=== PATIENT | female | born 2005 | race Hispanic/Latino ===

== ENCOUNTER 2024-02-21 11:15 | Emergency (ER) | payer SELFPAY ==
[2024-02-21] MEDS ORDERED: Sodium Chloride 0.9% 1,000 ML ONE (12:29)
[2024-02-21] MEDS ORDERED: Dicyclomine 20 MG TAB ONE (12:29)
[2024-02-21 12:30] LABS: Bilirubin Negative (Negative); Blood, Urine Large (Negative); Clarity Slightly Cloudy (Clear); Glucose, Urine (Dipstick) Negative (Negative); Ketone, Urine Negative (Negative); Leukocyte Trace (Negative); Nitrite Negative (Negative); Protein, Urine (Dipstick) Negative (Neg-Trace); Specific Gravity, Urine 1.015 (1.005-1.030); Urobilinogen 0.2 mg/dL (Less than 2)
[2024-02-21 12:32] LABS: CAUTI Indications for Culture Pelvic or flank pain; RBC/HPF 0-3 HPF (0-3); WBC/HPF 0-3 HPF (0-3)
[2024-02-21 12:33] LABS: #Basophils 0.1 thou/uL (0.0-0.2); #Eosinophils 0.2 thou/uL (0.0-0.7); #Lymphocytes 2.3 thou/uL (1.20-3.40); #Monocytes 0.6 thou/uL (0.11-0.59); #Neutrophils 5.5 thou/uL (1.40-6.50); %Basophils 0.9 % (0.0-1.0); %Eosinophils 2.2 % (0.0-10.0); %Lymphocytes 26.2 % (28.0-48.0); %Monocytes 7.2 % (0.0-4.0); %Neutrophils 63.5 % (31.0-61.0); Hematocrit 40.6 % (36.0-47.0); Hemoglobin 13.4 g/dL (12.0-16.0); Mean Corpuscular Hemoglobin 27.7 pg (25.0-35.0); Mean Platelet Volume 9.1 fL (7.4-10.4); Platelet Count 303 10x3/uL (130-400); RBC Distribution Width 11.9 % (11.5-14.5); Red Blood Cell (RBC) Count 4.83 mill/uL (4.00-5.20); White Blood Cell (WBC) Count 8.7 10x3/uL (4.8-10.8)
[2024-02-21 12:34] LABS: Urine Culture Reflex No No
[2024-02-21 12:44] LABS: BHCG - Serum Negative (NEGATIVE); Pregs Control Bar Appear? YES (CONTROL BAR)
[2024-02-21 12:50] LABS: ALT (SGPT) 16 U/L (8-55); AST (SGOT) 13 U/L (5-30); Albumin 3.8 g/dL (3.5-5.0); Alkaline Phosphatase 59 U/L (40-100); Anion Gap 11 mmol/L (10-20); BUN (Urea Nitrogen) 7 mg/dL (8.4-21.0); Bilirubin, Total 0.3 mg/dL (0.2-1.2); Calc. Creatinine Clearance 0 mL/min (70-130); Calcium 8.9 mg/dL (7.8-10.44); Carbon Dioxide 26 mmol/L (22-29); Chloride 105 mmol/L (98-107); Estimated GFR 126; Globulin 3.8 g/dL (2.4-3.5); Glucose 92 mg/dL (70-105); Lipase 26 U/L (8-78); Potassium 3.4 mmol/L (3.5-5.1); Protein, Total 7.6 g/dL (6.0-8.3); Sodium 139 mmol/L (136-145)
== END 2024-02-21 13:37 | disposition home or self-care (01) ==
LOC: NAV ERS 11:15
DX: A08.4 Viral intestinal infection, unspecified (principal)
CPT/HCPCS: 80053; 81001; 83690; 84703; 85025; 96360; J7030